=== PATIENT | male | born 2000 | race Caucasian/White ===

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

== ENCOUNTER 2019-02-09 11:21 | Emergency (ER) | payer SELFPAY ==
[2019-02-09] MEDS ORDERED: CIPROFLOXACIN HCL/DEXAMETH OTIC DROP 7.5 ML AU ONE (11:51)
--- NOTE | 2019-02-09 11:55 | ER Document Report ---
HPI - HPI Time Seen by Provider: 02/09/19 11:34 Context: Patient is a 18-year-old male presents emergency department with a chief complaint of bilateral ear pain. Patient states that 2 days ago his left ear started hurting and today his right ear started hurting. Patient has a history of excessive earwax. Patient states that he has had a low-grade fever. Past medical history includes Asperger's. - CONSTITUTIONAL Constitutional: DENIES: Fever, Chills - EENT EENT: REPORTS: Ear Pain. DENIES: Sore Throat, Nasal Drainage-Clear, Nasal Drainage-Purulent, Congestion, Eye problems - NEURO Neurology: DENIES: Headache, Weakness - CARDIOVASCULAR Cardiovascular: DENIES: Chest pain - RESPIRATORY Respiratory: DENIES: Trouble Breathing, Coughing - GASTROINTESTINAL Gastrointestinal: DENIES: Abdominal Pain, Nausea, Patient vomiting - MUSCULOSKELETAL Musculoskeletal: DENIES: Extremity pain - DERM Skin Color: Normal Skin Problems: None Past Medical History - Social History Smoking Status: Never Smoker Family History: Reviewed & Not Pertinent Renal/ Medical History: Denies: Hx Peritoneal Dialysis - Immunizations Immunizations up to date: Yes Hx Diphtheria, Pertussis, Tetanus Vaccination: Yes Vertical Provider Document - CONSTITUTIONAL Agree With Documented VS: Yes Exam Limitations: No Limitations General Appearance: No Apparent Distress - INFECTION CONTROL TRAVEL OUTSIDE OF THE [place] IN LAST 30 DAYS: No - HEENT HEENT: Atraumatic, Normocephalic, PERRLA, Tympanic Membrane Red - Left, Tympanic Membrane Bulging - Left. negative: Pharyngeal Exudate, Pharyngeal Tenderness, Pharyngeal Erythema Notes: Edema and erythema noted to bilateral external auditory canals - NECK Neck: Normal Inspection - RESPIRATORY Respiratory: Breath Sounds Normal, No Respiratory Distress - CARDIOVASCULAR Cardiovascular: Regular Rate, Regular Rhythm Pulses: Normal: Radial - MUSCULOSKELETAL/EXTREMETIES Musculoskeletal/Extremeties: FROM - NEURO Level of Consciousness: Awake, Alert, Appropriate - DERM Integumentary: Warm, Dry Course - Re-evaluation Re-evalutation: 02/09/19 Patient's physical exam and history is consistent with otitis externa. Patient will be placed on Ciprodex drops. I do not suspect patient has mastoiditis, as there is no pain at the mastoid process. Presentation is most consistent with an acute otitis media. Clinical history as well as exam is most consistent with this diagnosis. Based on history and examination do not suspect an acute meningitis, encephalitis, peritonsillar abscess, or retropharyngeal abscess. Child is otherwise well in appearance, no acute distress. Vitals otherwise within normal limits. The patient will be started on Ceftin. at this time will discharge with return precautions and follow-up recommendations. Verbal discharge instructions given a the bedside to the parents and opportunity for questions given. Medication warnings reviewed. Parents are in agreement with this plan and has verbalized understanding of return precautions and the need for primary care follow-up in the next 24-72 hours. Discharge - Discharge Clinical Impression: Right ear impacted cerumen Left otitis media Qualifiers: Otitis media type: mucoid Chronicity: acute Qualified Code(s): H65.112 - Acute and subacute allergic otitis media (mucoid) (sanguinous) (serous), left ear Bilateral otitis externa Qualifiers: Otitis externa type: unspecified type Chronicity: acute Qualified Code(s): H60.503 - Unspecified acute noninfective otitis externa, bilateral Condition: Stable Disposition: HOME, SELF-CARE Instructions: Use of Ear Drops ([facility]), Otitis Externa ([facility]) Additional Instructions: You are seen today in the emergency department for pain in both of your ears. You have an inner ear infection on the left side. You are being started on oral antibiotics. Please make sure you take all your antibiotics as prescribed. Do not miss a dose. Finish until it is gone. You also have an outer ear infection on both sides. On the right side, use peroxide and let it sit for [address] the antibiotic/steroid eardrops in. On the left side, please only place the antibiotic/steroid eardrops in your ear. Place 4 drops to both your ears twice a day for 7 days. If you have worsening symptoms, please return to the emergency department. Prescriptions: Cefuroxime Axetil [Ceftin 500 mg Tablet] 1 tab PO BID #20 tablet
[2019-02-09 12:40] VITALS: BP 128/73
== END 2019-02-09 12:21 | disposition home or self-care (01) ==
LOC: ER 11:21
DX: H60.503 Unspecified acute noninfective otitis externa, bilateral (principal); H65.112 Acute and subacute allergic otitis media (mucoid) (sanguinous) (serous), left ear; H61.21 Impacted cerumen, right ear; H92.03 Otalgia, bilateral
CPT/HCPCS: 99282; J3490